=== PATIENT | male | born 1990 | race Caucasian/White ===

== ENCOUNTER 2018-06-16 18:33 | Emergency (ER) | payer SELFPAY ==
[2018-06-16 18:34] VITALS: BP 158/108; PULSE 89; RESP 16; TEMP 36.7; O2SAT 99; BMI 20.5
[2018-06-16 19:36] VITALS: BP 150/89; PULSE 85; RESP 14; O2SAT 99
--- NOTE | 2018-06-16 20:22 | CT_ITS ---
STUDY: CT ABDOMEN AND PELVIS WITH CONTRAST REASON FOR EXAM: Male, 28 years old. Intermittent abdominal pain for one week. Elevated WBC count RADIATION DOSAGE (If Supplied By Facility): CTDIvol = ( 13.77 ) mGy, DLP = ( 413.03 ) mGycm TECHNIQUE: Transaxial images were obtained from the dome of the diaphragm to the symphysis pubis without oral contrast. 100ML ml of Isovue 300 contrast was administered. Sagittal and coronal images were reconstructed. Individualized dose optimization techniques were used for this CT. COMPARISON: None. FINDINGS: Lung bases demonstrate no evidence for consolidative process. Liver and spleen demonstrate no discrete mass. The portal vein is patent. The pancreas are within normal limits. Adrenal glands appear unremarkable. The bowel gas pattern is nonobstructive. No free air within the peritoneal cavity. No free fluid in the pelvis. Kidneys demonstrate no evidence for hydronephrosis. Gallbladder is nondistended. Appendix is not definitively visualized however no definite evidence for acute appendicitis. Osseous structures demonstrate no acute abnormalities. Mild degenerative disc disease in the lower lumbar spine. IMPRESSION: No evidence for small bowel obstruction. No drainable fluid collections identified. Electronically Signed: Tobin Saenz, at 23:17 EDT Tel , Service support , CT/Abdomen/Pelvis WITH Contrast
--- NOTE | 2018-06-16 20:30 | RAD_ITS ---
STUDY: X-RAY CHEST REASON FOR EXAM: Male, 28 years old. Upper abdominal pain with belching TECHNIQUE: Single view of the chest was obtained COMPARISON: None. FINDINGS: No lung consolidation, pleural effusion or pneumothorax. No free air under the diaphragm. Cardiac size slightly prominent. Mild perihilar streaky opacities. No acute osseous abnormalities seen. IMPRESSION: No evidence for focal airspace disease. No evidence for free air under the diaphragm noted. Electronically Signed: Tobin Saenz, at 20:42 EDT Tel , Service support , RAD/Chest 1 View (Portable)
[2018-06-16 20:48] LABS: Absolute Lymphocyte Count 1.94 X10^3/ul (0.83-4.51); Basophil# 0.04 X10^3/uL; Basophil% 0.4 % (0-1); Eosinophil# 0.12 X10^3/uL; Eosinophils% 1.1 % (0-5); Hematocrit 46.4 % (40-54); Hemoglobin 15.8 g/dl (13.0-16.5); Lymphocyte # 1.94 X10^3/ul (4.0); Mean Corp Hgb Conc 34.1 g/gl (32-36); Mean Corpuscular Hgb 30.5 pg (27.0-32.0); Mean Corpuscular Volume 89.6 fL (80-94); Mean Platelet Vol. 9.9 fl (6.2-12.0); Monocyte# 1.25 X10^3/uL; Neutrophil # 8.04 X10^3/uL (2.7-7.7); Neutrophil % 70.3 % (47-70); POSITIVE COUNT NO; POSITIVE DIFFERENTIAL NO; POSITIVE MORPHOLOGY NO; Platelet Count 196 K/mm3 (150-450); RBC Distribution Width CV 13.5 % (11.6-14.6); RBC Distribution Width SD 44.5 fl (35.1-43.9); Red Blood Count 5.18 M/mm3 (4.6-6.2); White Blood Count 11.4 K/mm3 (4.4-11.0)
[2018-06-16 21:09] LABS: ALB/GLOB Ratio 1.2 RATIO (0.9-2.4); AST(SGOT) 21 U/L (15-37); Alanine Aminotransfer ALT/SGPT 24 U/L (16-61); Albumin, Serum 4.3 g/dL (3.2-5.0); Alkaline Phosphatase 70 U/L (45-117); Anion Gap 4 (5-15); BUN 19 mg/dL (7-18); BUN/Creat Ratio 19.3 RATIO (10-20); Calcium,Total 9.4 mg/dL (8.5-10.1); Chloride 103 mmol/L (98-107); Creatinine, Serum 0.98 mg/dL (0.70-1.30); EST Glomerular Filtration Rate 98 mL/min (>60); Est Glom Filt Rate - Afr Amer 118 mL/min (>60); Estimated Creatinine Clearance 120.53 ml/min; Globulin 3.6 g/dL (2.2-4.2); Glucose 97 mg/dL (74-106); Lipase 81 U/L (73-393); Potassium 3.8 mmol/L (3.5-5.1); Protein, Total 7.9 g/dL (6.4-8.2); Sodium Level 138 mmol/L (136-145)
[2018-06-16 21:29] VITALS: BP 142/8; PULSE 81; RESP 14; O2SAT 98
--- NOTE | 2018-06-16 22:49 | ED.DCSUM_ITS ---
- ER Visit Summary Date of Service: 06/16/18 Chief Complaint: Abdominal pain History of Present Illness: The patient is a 28 M presenting with abdominal pain which started on Saturday. He states that he has had persistent pain diffusely in his abdomen. He has had nausea vomiting and diarrhea. He also complains of frequent belching. He states the pain worsens when he belches. He denies fever. Denies other complaints. Physical Examination: Vitals are stable. Patient is afebrile. Alert no acute distress. HEENT exam is unremarkable. Neck is supple. Lungs are clear and equal bilaterally. Heart is regular rate and rhythm. Abdomen is soft mild diffuse tenderness with no rebound or guarding. Extremities are unremarkable. Skin is warm and dry. No focal neurologic deficit. Remainder of exam is unremarkable. Emergency Department Course and Treatment: CBC, chemistries unremarkable other than white count 11.4, BUN 19. Liver lipase are normal. Chest x-ray shows no acute process. CT abdomen pelvis shows no evidence for small bowel obstruction. No drainable fluid collections identified. He was given a GI cocktail. He has some improvement. He will follow-up with Dr. Moralez instructional aide for no doc. Advised return ED for worsening complaints. Disposition: Discharge home Impression: Abdominal pain This note was generated with [employer] dictation software. It may contain incorrect words, spelling, and punctuation that were not noted in review of the chart prior to signing ED Disposition - Plan for ED Patient: Chief Complaint: Abd Pain Referrals: Care Physician,No Primary [Primary Care Provider] -
--- NOTE | 2018-06-16 23:52 | ED.DEP ---
ED Disposition - Plan for ED Patient: Chief Complaint: Abd Pain Instructions: ED Abdominal Pain Unkn Cause Prescriptions: Ondansetron [Zofran Odt] 4 mg PO Q8H PRN PRN #10 tablet PRN Reason: Nausea Dicyclomine HCl [Bentyl] 20 mg PO TIDAC #20 capsule Referrals: Care Physician,No Primary [Primary Care Provider] - Edgardo Moralez MD [STAFF PHYSICIAN] -
[2018-06-17] MEDS: Mag Hydrox/Al Hydrox/Simeth 30 ML UDC PO (00:16)
[2018-06-17 00:25] VITALS: PULSE 76; RESP 16; O2SAT 98
== END 2018-06-17 00:25 | disposition home or self-care (01) ==
PROVIDERS: Emergency Provider Emergency Medicine
DX: R10.9 Unspecified abdominal pain (principal)
CPT/HCPCS: 71045; 74177; 80053; 83690; 85025; 99284; Q9967; A4216